=== PATIENT | male | born 1990 | race Hispanic/Latino ===

== ENCOUNTER 2016-09-08 04:26 | Emergency (ER) | payer OTHER ==
[~2016-09-08] VITALS: Ht 167.6 cm; Wt 77.3 kg
[2016-09-08 04:28] VITALS: BP 139/94; PULSE 83; RESP 16; O2SAT 96
--- NOTE | 2016-09-08 04:39 | ED.REPORT ---
HPI-General Illness Date of Service Sep 08, 2016 ED Provider: Tee Armas MD 25 year old male presents to the ER complaining of five days of sore throat, markedly worsening two days ago with voice change. Associated symptoms include fever, nasal congestion, generalized myalgias, "ear popping", and diarrhea. Symptoms have been treated with DayQuil, and penicillin given to him by his mother. Patient has an infant child at home. Nursing Notes Stated Complaint: FEVER/SORE THROAT/CONGESTION Chief Complaint: FLU/Cold Symptoms Nursing Notes Reviewed: Yes Allergies: Coded Allergies: No Known Allergies (Unverified , 09/08/16) Scheduled Cephalexin (Keflex) 500 Mg Capsule 500 MG PO TID General Time Seen by MD: 04:39 Chief Complaint Sore throat Hx Obtained From: Patient Arrived By: Walk-in Sudden in Onset?: No Onset Occurred: 5 days ago Symptom Duration: Since onset Associated with: Reports: Congestion, Fever Additional Notes: Diarrhea Past Medical History Past Medical History Healthy Smoking History Unknown if Ever Smoker Social History Other Social History: , Lives with children Ambulatory Status Independent Review of Systems Full Review of Systems Constitutional: Reports: Fever Ears / Nose / Throat: Reports: Nasal congestion, Sore throat, Voice change Respiratory: Denies: Non-productive cough, Shortness of breath GI: Reports: Diarrhea, Denies: Nausea, Vomiting Musculoskeletal: Reports: Myalgia (Generalized) Complete sys rev & neg: except as marked. Physical Exam Vital Signs Vital Signs Date Time Temp Pulse Resp B/P Pulse Ox O2 Delivery O2 Flow Rate FiO2 09/08/16 04:28 37.1 83 16 139/94 96 Room Air Initial VS: Reviewed General/Constitutional: Well-developed, Well-nourished Head / Eyes: Atraumatic, Normocephalic ENT: Mucous membranes moist Extremities: Vascular intact, Neuro intact, No swelling, No tenderness Skin: Warm, Dry, No cyanosis Neurologic: Alert, Oriented, Nonfocal Psychiatric: Mood/affect normal, Behavior normal, Normal thought content ENT: Airway patent, Mucous membranes moist, No peritonsillar abscess, No trismus Mouth: Negative: Angioedema present..., Hypersalivation, Muffled voice, Pooling of secretions, Stomatitis present Pharynx / Tonsils / Uvula: Positive: Pharyngeal erythema Hoarse voice. No tonsillar exudates. Neck: Full range of motion, No midline vertebral tend, No tracheal deviation Soft Tissue Neck: Positive: Cervical adenopathy L... (Anterior), Cervical adenopathy R... (Anterior) Respiratory / Chest: Breath sounds NL, No respiratory distress, No rales, No rhonchi, No wheezing Cardiovascular: Heart rate NL, Regular rhythm, Heart sounds NL, Cap refill not delayed, Peripheral circulation NL Re-Eval/Medical Decision Med Decision/Clinical Course 25-year-old with pharyngitis, fairly beefy looking throat without exudates, adenopathy, and fever. At baseline is about 60% likelihood of strep. Unfortunately, his mother has provided him with a single penicillin dose, rendering lab relatively useless. Having committed himself to antibiotics at this point, will treat with Keflex 3 times a day for ten days. He was advised explicitly not to take antibiotics without some understanding from a physician and a prescription. Single dose of Decadron for comfort. Ibuprofen as needed. Work note for yesterday and today provided. Discharged in stable condition. No evidence of abscess or airway compromise. Time of Eval: 04:42 Re-Evaluation/Progress Note: Discussed physical examination findings and plan to discharge. Patient is amenable to the plan. Return precautions given. All other questions addressed. Counseled Regarding: Diagnosis, Need for follow-up, When/why to return to ED Discharge & Departure Primary Impression: Pharyngitis Disposition: Home Discharge Condition All VS Reviewed: Yes Condition: Stable Patient Instructions: Pharyngitis (DC) Additional Instructions: Keflex three times daily for ten days. Drink plenty of fluids and stay hydrated. Follow-up with your doctor in the office. Do not take Antibiotics unless they are prescribed. This makes it impossible to reach a correct diagnosis, and may cause serious side effects. Drink plenty of fluids and stay well-hydrated Motrin four times daily as needed. Referrals: [facility] (PCP) Scribe Attestation Portions of this note were transcribed by Jamie Hayden. I, Dr. Armas, personally performed the history, physical exam and medical decision-making; I reviewed and confirmed the accuracy of the information in the transcribed note. Signed by: Noe Veloz. 09/08/2016 - 04:50 copies to: [facility] Tee Armas MD Sep 08, 2016 04:39 JAMIE HAYDEN Sep 08, 2016 04:46
[2016-09-08] MEDS ORDERED: Dexamethasone 20 mg/2 mL Oral Solution PO ONE (04:45)
[2016-09-08] MEDS ORDERED: CEPH-512 PO (04:48)
== END 2016-09-08 04:48 | disposition home or self-care (01) ==
LOC: SED 04:26
DX: J02.9 Acute pharyngitis, unspecified (principal)